=== PATIENT | female | born 2005 | race Caucasian/White ===

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

== ENCOUNTER 2023-02-28 03:00 | Emergency (ER) | payer MEDICAID ==
[2023-02-28] MEDS ORDERED: Iopamidol 612 MG/ML 100 ML Bottle IVPUSH ONE (04:01)
[2023-02-28] MEDS ORDERED: Morphine 4 MG/ML Syringe IVPUSH ONE (04:09)
[2023-02-28 04:10] LABS: BASOPHILS ABSOLUTE AUTO 0.04 K/mm3 (0.01-0.08); BASOPHILS PERCENT AUTO 0.6 % (0.1-1.2); EOSINOPHILS ABSOLUTE AUTO 0.08 K/mm3 (0.04-0.36); EOSINOPHILS PERCENT AUTO 1.2 (0.7-5.8); HEMATOCRIT 43.4 % (34.1-44.9); HEMOGLOBIN 14.3 gm/dl (11.2-15.7); LYMPHOCYTES ABSOLUTE AUTO 2.08 K/mm3 (1.18-3.74); LYMPHOCYTES PERCENT AUTO 32.4 % (19.3-51.7); MEAN CORPUSCULAR HEMOGLOBIN 28.3 pg (25.6-32.2); MEAN CORPUSCULAR HGB CONC 32.9 g/dl (32.2-35.5); MEAN CORPUSCULAR VOLUME 85.8 fl (79.4-94.8); MEAN PLATELET VOLUME 9.4 fl (9.4-12.3); MONOCYTES ABSOLUTE AUTO 0.83 K/mm3 (0.24-0.36); MONOCYTES PERCENT AUTO 12.9 % (4.7-12.5); NEUTROPHILS ABSOLUTE AUTO 3.38 K/mm3 (1.56-6.13); NEUTROPHILS PERCENT AUTO 52.9 % (34.0-71.1); PLATELET COUNT,PLT 295 K/mm3 (182-369); RED BLOOD CELL COUNT 5.06 M/mm3 (3.98-5.22); WHITE BLOOD CELL COUNT,WBC 6.41 K/mm3 (3.98-10.04)
[2023-02-28] MEDS ORDERED: Ondansetron 4 MG/2 ML SDV IVPUSH ONE (04:10)
[2023-02-28 04:34] LABS: A/G RATIO 1.1 (1-2); ALBUMIN 4.2 g/dl (3.4-5.0); BILIRUBIN TOTAL 0.5 mg/dL (0.2-1.0); BUN/CREATININE RATIO 12.2 (14-18); CALCIUM 9.2 mg/dL (8.5-10.1); CREATININE 0.9 mg/dL (0.55-1.02); EST CRCL DRUG DOSING (CG) 93.34 mL/min; PROTEIN TOTAL,TP 8.1 g/dl (6.4-8.2)
[2023-02-28 05:41] VITALS: BP 101/56; PULSE 55
== END 2023-02-28 05:30 | disposition home or self-care (01) ==
LOC: JD.ED 03:00
DX: R10.12 Left upper quadrant pain (principal); Z88.0 Allergy status to penicillin
CPT/HCPCS: 36415; 74177; 80053; 81025; 85025; 99284; J2270; J2405; Q9967